=== PATIENT | male | born 1980 | race Caucasian/White ===

== ENCOUNTER 2018-08-07 15:38 | Emergency (ER) | payer MEDICAID, OTHER ==
[~2018-08-07] VITALS: Ht 185.4 cm; Wt 77.1 kg
[2018-08-07 16:33] VITALS: BP 137/105
[2018-08-07 18:12] LABS: Basophils # (auto) 0.1 uL; Eosinophils # (auto) 0 uL; Mean Corpuscular Hemoglobin 36.3 pg (28.0-32.0); Monocytes # (auto) 0.7 uL; Nucleated Red Blood Cells % 0.1 %; Red Cell Distribution Width 14.4 % (11.8-14.3)
[2018-08-07 18:17] LABS: Basophils % (auto) 0.7 % (0.0-2.0); Eosinophils % (auto) 0.3 % (0.0-7.0); Hematocrit 46.7 % (41.0-53.0); Hemoglobin 16.1 g/dL (13.5-17.5); Lymphocytes # (auto) 1.6 uL; Mean Corpuscular Hgb Conc. 34.5 g/dL (32.0-36.0); Mean Corpuscular Volume 105.2 fL (80.0-100.0); Monocytes % (auto) 8.1 % (0.0-12.0); Neutrophils # (auto) 6.7 uL; Neutrophils % (auto) 72.9 % (37.0-80.0); Platelet Count (auto) 170 10^3/uL (140-450); Red Blood Cells 4.44 10^6/uL (4.5-5.90); White Blood Cell 9.2 10^3/uL (4.4-10.8)
[2018-08-07 18:28] LABS: Albumin 3.9 g/dL (3.4-5.0); Anion Gap 8 (5-15); Blood Urea Nitrogen 5 mg/dL (7-18); Calcium 9.2 mg/dL (8.5-10.1); Carbon Dioxide 28 mmol/L (21-32); Chloride 101 mmol/L (98-107); Glucose 104 mg/dL (74-106); Potassium 3.7 mmol/L (3.5-5.1); Sodium 137 mmol/L (136-145)
[2018-08-07 18:33] LABS: Alanine Aminotransferase 65 U/L (16-61); Alkaline Phosphatase 73 U/L (45-117); Aspartate Aminotransferase 139 U/L (15-37); BUN/Creatinine Ratio 5.4; Bilirubin, Total 2.2 mg/dL (0.2-1.0); Blood Alcohol < 3.0 mg/dL (0-5); GFR African American 119 mL/min; GFR Non-African American 98 mL/min; Total Protein 8.3 g/dL (6.4-8.2)
== END 2018-08-07 20:55 | disposition left against medical advice (07) ==
LOC: ER 15:41
DX: F10.239 Alcohol dependence with withdrawal, unspecified (principal); R42 Dizziness and giddiness; M54.5 Low back pain; R19.7 Diarrhea, unspecified; Z53.21 Procedure and treatment not carried out due to patient leaving prior to being seen by health care provider
CPT/HCPCS: 36415; 80053; 80320; 85025

== ENCOUNTER 2019-07-18 15:52 | Emergency (ER) | payer MEDICAID ==
[~2019-07-18] VITALS: Ht 185.4 cm; Wt 72.6 kg
[2019-07-18 16:09] VITALS: BP 152/95
[2019-07-18] MEDS ORDERED: LORazepam 0.5 MG TAB PO ONE (16:15)
[2019-07-18 16:43] LABS: Basophils # (auto) 0.1 uL; Basophils % (auto) 1.2 % (0.0-2.0); Eosinophils # (auto) 0 uL; Monocytes # (auto) 0.6 uL; Neutrophils # (auto) 5.1 uL; Nucleated Red Blood Cells % 0.1 %; White Blood Cell 7.2 10^3/uL (4.4-10.8)
[2019-07-18 16:45] LABS: Eosinophils % (auto) 0.4 % (0.0-7.0); Hematocrit 44.7 % (41.0-53.0); Hemoglobin 15.3 g/dL (13.5-17.5); Lymphocytes # (auto) 1.4 uL; Lymphocytes % (auto) 19.5 % (10.0-50.0); Mean Corpuscular Hgb Conc. 34.2 g/dL (32.0-36.0); Mean Corpuscular Volume 108.1 fL (80.0-100.0); Monocytes % (auto) 7.9 % (0.0-12.0); Platelet Count (auto) 143 10^3/uL (140-450); Red Blood Cells 4.13 10^6/uL (4.5-5.90); Red Cell Distribution Width 14.1 % (11.8-14.3)
[2019-07-18 16:54] LABS: Albumin 4.2 g/dL (3.4-5.0); Calcium 9.2 mg/dL (8.5-10.1); Potassium 3.5 mmol/L (3.5-5.1)
[2019-07-18 16:56] LABS: BUN/Creatinine Ratio 3.5
[2019-07-18 16:59] LABS: Bilirubin, Total 1.3 mg/dL (0.2-1.0); Total Protein 8.5 g/dL (6.4-8.2)
== END 2019-07-18 19:36 | disposition left against medical advice (07) ==
LOC: ER 15:53
DX: M48.061 Spinal stenosis, lumbar region without neurogenic claudication (principal); M51.37 Other intervertebral disc degeneration, lumbosacral region
CPT/HCPCS: 36415; 72131; 80053; 85025

== ENCOUNTER 2023-10-17 22:41 | Emergency (ER) | payer MEDICAID ==
[~2023-10-17] VITALS: Ht 185.4 cm; Wt 80.0 kg
[2023-10-17 23:21] LABS: Eosinophils # (auto) 0 10 ^3/uL (0-0.8); Eosinophils % (auto) 0.2 % (0.0-7.0); Lymphocytes # (auto) 1.2 10 ^3/uL (0.4-5.4); Neutrophils % (auto) 77.7 % (37.0-80.0); White Blood Cell 10.2 10^3/uL (4.4-10.8)
[2023-10-17 23:27] LABS: Basophils # (auto) 0 10 ^3/uL (0-0.2); Basophils % (auto) 0.3 % (0.0-2.0); Hematocrit 37.3 % (41.0-53.0); Hemoglobin 13.1 g/dL (13.5-17.5); Lymphocytes % (auto) 11.7 % (10.0-50.0); Mean Corpuscular Hemoglobin 36.7 pg (28.0-32.0); Mean Corpuscular Hgb Conc. 35.2 g/dL (32.0-36.0); Mean Corpuscular Volume 104.3 fL (80.0-100.0); Monocytes % (auto) 10.1 % (0.0-12.0); Red Blood Cells 3.58 10^6/uL (4.5-5.90); Red Cell Distribution Width 12.9 % (11.8-14.3)
[2023-10-17 23:35] LABS: Alanine Aminotransferase 48 U/L (7-40); Albumin 3.8 g/dL (3.2-4.8); Alkaline Phosphatase 78 U/L (46-116); Anion Gap 12 (5-15); Aspartate Aminotransferase 87 U/L (13-40); Bilirubin, Total 0.9 mg/dL (0.2-1.0); Calcium 8.6 mg/dL (8.7-10.4); Carbon Dioxide 21 mmol/L (20-30); Chloride 86 mmol/L (98-107); Glucose 114 mg/dL (74-106); Potassium 2.8 mmol/L (3.5-5.1); Total Protein 8.1 g/dL (5.7-8.2)
[2023-10-17 23:40] LABS: INR 1.01 (0.9-1.15); Partial Thromboplastin Time 31.3 SEC (24.5-34.5); Prothrombin Time 10.7 sec (9.3-11.8)
[2023-10-17] MEDS: IOHEXOL 350 MG/ML 100ML IJ ONE (23:57)
[2023-10-18 00:40] LABS: BUN/Creatinine Ratio 8.2 (10.0-20.0); Blood Urea Nitrogen < 5 mg/dL (9-23)
[2023-10-18 00:41] LABS: Sodium 119 mmol/L (136-145)
[2023-10-18] MEDS: MORPHINE SULFATE 4 MG/ML SYR/VIAL IV ONE (01:49)
[2023-10-18] MEDS: ONDANSETRON HCL 4 MG/2 ML VIAL IV ONE (01:49)
[2023-10-18 02:16] LABS: Urine Bacteria None Seen /hpf (None Seen)
[2023-10-18 02:32] LABS: Urine Blood 1+ /uL (Negative); Urine Clarity Clear (Clear); Urine Color Straw (Yellow); Urine Protein, UAD Negative (Negative); Urine Urobilinogen Normal (Negative); Urine WBC <1 /hpf (0 - 3); Urine pH 6.5 (5.0-9.0)
[2023-10-18 03:00] VITALS: PULSE 94; RESP 16; O2SAT 99
[2023-10-18] MEDS: SODIUM CHLORIDE 0.9% 1,000 ML IV ONE (03:15)
[2023-10-18] MEDS: POTASSIUM CHL 20 Meq TABLET PO ONE (03:15)
[2023-10-18] MEDS: POTASSIUM CHL 20MEQ/100ML 100 ML IV ONE (04:15)
[2023-10-18 05:49] LABS: Alanine Aminotransferase 42 U/L (7-40); Albumin 3.6 g/dL (3.2-4.8); Alkaline Phosphatase 73 U/L (46-116); Anion Gap 7 (5-15); Aspartate Aminotransferase 68 U/L (13-40); Calcium 8.4 mg/dL (8.7-10.4); Carbon Dioxide 25 mmol/L (20-30); Glucose 108 mg/dL (74-106); Potassium 3.3 mmol/L (3.5-5.1)
[2023-10-18 05:50] LABS: Bilirubin, Total 1.3 mg/dL (0.2-1.0); Total Protein 7.7 g/dL (5.7-8.2)
[2023-10-18 05:59] LABS: BUN/Creatinine Ratio 7.9 (10.0-20.0); Blood Urea Nitrogen < 5 mg/dL (9-23); Chloride 98 mmol/L (98-107); Sodium 130 mmol/L (136-145)
[2023-10-18 08:06] VITALS: PULSE 89; RESP 18; O2SAT 99
[2023-10-18 09:29] VITALS: BP 118/78; PULSE 101; RESP 21; TEMP 98.1; O2SAT 95
== END 2023-10-18 09:50 | disposition short-term general hospital (02) ==
LOC: ER 22:41 → EDBD 22:41 → ER 10-18 09:50
DX: M25.551 Pain in right hip (principal); E87.6 Hypokalemia; E87.1 Hypo-osmolality and hyponatremia; M25.561 Pain in right knee; R06.02 Shortness of breath; I10 Essential (primary) hypertension; F15.90 Other stimulant use, unspecified, uncomplicated
CPT/HCPCS: 36415; 71275; 73502; 73562; 73700; 80053; 81001; 83880; 84484; 85025; 85379; 85610; 85730; 93005; 93971; 96361; 96374; 96375; 99285; J2270; J2405; J3480; J7030; Q9967